=== PATIENT | male | born 1955 | race Caucasian/White ===

== ENCOUNTER 2020-02-25 16:06 | Outpatient (CLI) | payer MEDICARE, BC, SELFPAY ==
--- NOTE | ~2020-02-25 | XR_ITS ---
EXAMINATION: XR thoracic spine 3V, XR lumbar spine 2-3V EXAM DATE: 02/25/2020 16:48 INDICATION: Malfunctioning pain pump. TECHNIQUE: Frontal and lateral projections of the thoracic spine as well as lateral swimmers projecti on of the upper thoracic spine for interpretation. Lumber spine frontal, lateral, lateral L5-S1 proje ctions for interpretation. Additional frontal thoracolumbar spine image was obtained. FINDINGS: Tip of the pain pump is poorly visualized but suspected to be terminating at about the T10 level. There is a pain pump device. Thin catheter is identified, and appears to be intact, entering at the L1-2 level. There is moderate disc disease from L2 through S1. There is moderate lumbar facet arthropathy. There is cervical fusion hardware at C6-7. No endplate erosive change. There is mild tho racolumbar levoscoliosis. IMPRESSION: 1. Pain pump catheter appearing intact and tip poorly visualized but identified to T10 level. 2. Moderate lumbar spondylosis. 3. Mild thoracolumbar levoscoliosis. Reviewed, dictated and finalized at location A. IMPRESSION: 1. Pain pump catheter appearing intact and tip poorly visualized but identifie d to T10 level. 2. Moderate lumbar spondylosis. 3. Mild thoracolumbar levoscoliosis.
== END 2020-02-25 16:07 | disposition home or self-care (01) ==
PROVIDERS: PCP Internal Medicine; Visit Provider Nurse Practitioner Adult Health
DX: M54.6 Pain in thoracic spine (principal); M47.816 Spondylosis without myelopathy or radiculopathy, lumbar region; Z96.89 Presence of other specified functional implants; M41.85 Other forms of scoliosis, thoracolumbar region
CPT/HCPCS: 72072; 72100

== ENCOUNTER 2020-07-20 14:14 | Outpatient (CLI) | payer MEDICARE, BC, SELFPAY ==
--- NOTE | ~2020-07-20 | CT_ITS ---
EXAMINATION: CT thoracic lumbar wo con EXAM DATE: 07/20/2020 15:00 INDICATION: FAILED BACK SURGERY ., Lumbar spine mid and low back pain. TECHNIQUE: Spiral CT thoracolumbar spine was performed without contrast. Axial, coronal and sagittal images of the thoracic spine were reviewed. Axial, coronal and sagittal images of the lumbar spine we re reviewed. The dose-length product (DLP) for this examination was 2213.68 mGy-cm. The exposure was tailored according to patient size (auto mA exposure control), and iterative reconstruction (ASIR) w as used as additional dose reduction technique. Comparison is made to prior examination from . FINDINGS: THORACIC SPINE: Paraspinal soft tissue is unremarkable. There are no acute fractures identified. Mild to moderate thoracic disc disease, with small to moderate size Schmorl's nodes at many of the mid an d lower thoracic endplates. There is a pain pump catheter tip identified at the T9-T10 level. There i s no evidence of central canal stenosis. Mild mid thoracic neural foraminal stenosis. There are no os teoblastic or osteolytic lesions identified. Thoracic spine with only minimal curvature, down to the L1-2 level where there is levoscoliosis. LUMBAR SPINE: There is mild to moderate lumbar levoscoliosis centered at the L1-2 level. There is 3-4 mm left lateral subluxation L2 on L3 and L3 on L4. There is vacuum disc phenomenon with moderate to severe disc disease from L2 through S1. No spondylolysis. There is 3 mm anterolisthesis L2 on L3, 2 m m retrolisthesis L5 on S1. Lumbar vertebral body heights relatively well-maintained. There are no ost eoblastic or osteolytic lesions identified. Mid abdominal aortic fusiform aneurysm at 3.9 cm, may hav e increased in size by 2 mm in AP dimension. Level by level evaluation: T12-L1: There is a minimal diffuse disc bulge. Facet arthropathy: Minimal. Neural foraminal stenosis: No stenosis. Central canal stenosis: No stenosis. L1-L2: There is a mild diffuse disc bulge. Facet arthropathy: Mild. Neural foraminal stenosis: No stenosis. Central canal stenosis: No stenosis. Pain pump catheter enters this level. L2-L3: There is a moderate diffuse disc bulge. Facet arthropathy: Mild to moderate. Neural foraminal stenosis: Moderate right, mild left. Central canal stenosis: Mild to moderate. L3-L4: There is a moderate to large diffuse disc bulge. Facet arthropathy: Moderate. Neural foraminal stenosis: Mild to moderate right, mild left. Central canal stenosis: Mild to moderate. L4-L5: There is a moderate to large diffuse disc bulge. Facet arthropathy: Moderate. Neural foraminal stenosis: Moderate left, mild to moderate right. Central canal stenosis: Moderate. L5-S1: There is a moderate diffuse disc bulge. Facet arthropathy: Mild to moderate bilateral. Neural foraminal stenosis: Mild right. Central canal stenosis: Mild. Difficult to appreciate any significant interval change in lumbar spondylosis compared to prior study . IMPRESSION: 1. Abdominal aortic aneurysm, may have minimally increased in size at 3.9 cm. 2. Moderate to severe lumbar spondylosis not significantly changed. 3. Mild to moderate thoracic spondylosis. 4. Pain pump catheter tip at T9-10 level. Reviewed, dictated and finalized at location A.
--- NOTE | ~2020-07-20 | CT_ITS ---
EXAMINATION: CT cervical spine wo con EXAM DATE: 07/20/2020 14:59 INDICATION: Cervical radiculopathy. TECHNIQUE: Spiral CT of the cervical spine was performed without contrast. Axial images were reviewe d. Coronal and sagittal reformatted images were also reviewed. The dose-length product (DLP) for thi s examination was 464.43 mGy-cm. The exposure was tailored according to patient size (auto mA exposu re control), and iterative reconstruction (ASIR) was used as additional dose reduction technique. Com parison is made to prior examination from 09/04/2019. FINDINGS: Cervical fusion hardware C6-7 with anterior plate and interbody device unchanged. There is solid bone bridging within the graft and portion surrounding it. There is mild cervical levoscoliosis , mild cervicothoracic dextroscoliosis with transition point at the fused level. C6-7 vertebral josué s also appear to be fused with some left lateral subluxation which may contribute to the right neural foraminal stenosis. The odontoid process is intact. The lateral masses of C1 line up with C2. Preve rtebral soft tissue and pre-dens space are within normal limits. The vertebral bodies are aligned in the AP dimension. Vertebral body and disc heights are well-maintained. Level by level evaluation: C2-C3: Disc does not extend beyond the endplate margin. Uncovertebral joint arthropathy: None. Facet joint arthropathy: None. Neural foraminal stenosis: No stenosis. Central canal stenosis: No stenosis. C3-C4: Disc does not extend beyond the endplate margin. Uncovertebral joint arthropathy: Mild bilateral. Facet joint arthropathy: Mild bilateral. Neural foraminal stenosis: No stenosis. Central canal stenosis: No stenosis. C4-C5: There is a mild diffuse disc bulge. Uncovertebral joint arthropathy: Mild to moderate left, mild right. Facet joint arthropathy: Mild bilateral. Neural foraminal stenosis: Mild to moderate left, mild right. Central canal stenosis: Mild. C5-C6: Disc does not extend beyond the endplate margin. Uncovertebral joint arthropathy: Mild to moderate bilateral. Facet joint arthropathy: Mild bilateral. Neural foraminal stenosis: Mild to moderate left, no right. Central canal stenosis: Minimal. C6-C7: This level is fused. Uncovertebral joint arthropathy: Moderate to severe right, mild to moderate left. Facet joint arthropathy: Moderate right, mild left. Neural foraminal stenosis: No stenosis. Central canal stenosis: No stenosis. C7-T1: Disc does not extend beyond the endplate margin. Uncovertebral joint arthropathy: Mild bilateral. Facet joint arthropathy: Mild bilateral. Neural foraminal stenosis: No stenosis. Central canal stenosis: No stenosis. Difficult appreciate any significant interval change, although description might be different. IMPRESSION: 1. Cervicothoracic scoliosis. 2. Intact C6-7 fusion, with moderate right neural foraminal stenosis at that level. Reviewed, dictated and finalized at location A. IMPRESSION: 1. Cervicothoracic scoliosis. 2. Intact C6-7 fusion, with moderate right neural foraminal stenosis at that l guera.
== END 2020-07-20 14:15 | disposition home or self-care (01) ==
PROVIDERS: PCP Internal Medicine; Visit Provider Physical Medicine & Rehabilitation Pain Medicine
DX: M47.896 Other spondylosis, lumbar region (principal); M47.894 Other spondylosis, thoracic region; I71.4 Abdominal aortic aneurysm, without rupture; Z98.1 Arthrodesis status
CPT/HCPCS: 72125; 72128; 72131